=== PATIENT | female | born 1965 | race Caucasian/White ===

== ENCOUNTER 2022-02-10 05:59 | Observation (INO) ==
[2022-02-10] MEDS ORDERED: Lactated Ringers 1000 ml BAG 1,000 ML IV SCH (06:00)
[2022-02-10] MEDS ORDERED: Buffered Lidocaine 1% SYRIN 1 ml INTRADERM ONE (06:00)
[2022-02-10] MEDS ORDERED: ceFAZolin 2 GM in NS PREMIX 2 GM/100 ML BAG IVPB ONE (06:22)
[2022-02-10] MEDS ORDERED: Vancomycin 1,000 MG VIAL ONE (06:31)
[2022-02-10] MEDS ORDERED: Propofol 10 MG/ML 20 ML BTL ONE (06:52)
[2022-02-10] MEDS ORDERED: Lidocaine 2% PF 5 ML VIAL ONE (06:52)
[2022-02-10] MEDS ORDERED: Ketamine HCL 50 mg/ml 10 ml VIAL (500 MG) ONE (06:53)
[2022-02-10] MEDS ORDERED: fentaNYL 100 mcg/2 ml 50 MCG/ML VIAL ONE ×2 (07:16→09:00)
[2022-02-10] MEDS ORDERED: Midazolam 5 mg/5 ml VIAL 1 mg/ml 5 ml VIAL (5 mg) ONE (07:16)
[2022-02-10] MEDS ORDERED: ROPIVACAINE 5 MG/ML 30 ML BTL (0.5%) ONE (07:22)
[2022-02-10] MEDS ORDERED: Rocuronium 50 mg VIAL 10 mg/ml 5 ml VIAL (50 mg) ONE ×2 (07:36→07:56)
[2022-02-10] MEDS ORDERED: fentaNYL 250 mcg/5 ml 50 MCG/ML 5 ml VIAL (250 MCG) ONE (07:40)
[2022-02-10] MEDS ORDERED: Ondansetron 4 mg VIAL 2 MG/ML 2 ml VIAL ONE (07:56)
[2022-02-10] MEDS ORDERED: Dexamethasone IV 4 MG/ML VIAL 1 ml VIAL ONE (07:56)
[2022-02-10] MEDS ORDERED: Acetaminophen IV 1 GM/100ML 1,000 MG/100 ML BAG IV ONE (08:12)
[2022-02-10] MEDS ORDERED: Ondansetron 4 mg VIAL 2 MG/ML 2 ml VIAL IV PRN ×2 (08:15→10:43)
[2022-02-10] MEDS ORDERED: Naloxone 0.4 mg VIAL 0.4 mg/ml 1 ml VIAL IV PRN (08:15)
[2022-02-10] MEDS ORDERED: HYDROmorphone 0.5 MG/0.5 ML SYRINGE ONE (08:58)
[2022-02-10] MEDS ORDERED: Lactulose 30 ml UDC PO PRN (10:43)
[2022-02-10] MEDS ORDERED: Ondansetron ODT 4 mg TAB 4 MG TAB PO PRN (10:43)
[2022-02-10] MEDS ORDERED: Magnesium Hydroxide LIQ 30 ML UDC PO PRN (10:43)
[2022-02-10] MEDS ORDERED: Dextrose 50% Syringe 50 ml 25 GM/50 ML SYRINGE IV PUSH PRN (11:35)
[2022-02-10] MEDS ORDERED: HYDROmorphone 1 MG/1 ML SYRINGE ONE ×2 (12:27→12:30)
[2022-02-10] MEDS: HYDROmorphone 1 MG/1 ML SYRINGE IV PRN ×2 (12:28→13:09)
[2022-02-10] MEDS: Morphine 2 MG/ML SYRINGE IV PRN (13:50)
[2022-02-10] MEDS: Lactated Ringers 1000 ml BAG 1,000 ML IV SCH (13:58)
[2022-02-10] MEDS: HYDROcodone/ACETAMIN 5/325 mg TAB PO PRN ×2 (14:33→18:44)
[2022-02-10] MEDS: ceFAZolin 1 GM ADVAN 1 GM in NS 0.9% 50 ML 50 ML IVPB SCH (17:11)
[2022-02-10] MEDS: Magnesium Hydroxide LIQ 30 ML UDC PO SCH (21:21)
[2022-02-11] MEDS: HYDROcodone/ACETAMIN 5/325 mg TAB PO PRN ×4 (00:21→13:40)
[2022-02-11] MEDS: ceFAZolin 1 GM ADVAN 1 GM in NS 0.9% 50 ML 50 ML IVPB SCH ×2 (00:23→09:20)
[2022-02-11] MEDS: Lactated Ringers 1000 ml BAG 1,000 ML IV SCH (01:28)
[2022-02-11 06:00] LABS: Hematocrit 41 % (35-47); Hemoglobin 13.6 g/dL (12.0-16.0); Platelet Count 201 10^3/uL (150-450)
[2022-02-11 06:06] LABS: Calcium 8.8 mg/dL (8.6-10.3); Potassium 3.2 mmol/L (3.5-5.0)
[2022-02-11 06:12] LABS: eGFR CKD-EPI 109.8 (>60)
[2022-02-11] MEDS ORDERED: Potassium Chlor 20 meq TAB.ER PO ONE (08:08)
[2022-02-11] MEDS: METHYLNALTREXONE 150 MG PO SCH (08:20)
[2022-02-11] MEDS ORDERED: PHENTERMINE 15 MG PO SCH (09:00)
[2022-02-11] MEDS: Magnesium Hydroxide LIQ 30 ML UDC PO SCH ×2 (09:22→21:07)
[2022-02-11] MEDS: Vitamin THERAPEUTIC TAB PO SCH (09:24)
[2022-02-11] MEDS: Morphine 2 MG/ML SYRINGE IV PRN (14:28)
[2022-02-11 18:06] LABS: High Sensitivity Troponin 1 Hr 4 pg/mL (<15)
[2022-02-12 06:28] LABS: Hematocrit 33 % (35-47); Hemoglobin 11.6 g/dL (12.0-16.0); Mean Platelet Volume 8.2 fL (7.4-10.4); Platelet Count 236 10^3/uL (150-450)
[2022-02-12 07:18] LABS: Calcium 8.5 mg/dL (8.6-10.3); Magnesium 1.8 mg/dL (1.9-2.7); Potassium 3.5 mmol/L (3.5-5.0)
[2022-02-12 07:24] LABS: eGFR CKD-EPI 114.3 (>60)
[2022-02-12] MEDS: METHYLNALTREXONE 150 MG PO SCH (07:32)
[2022-02-12] MEDS ORDERED: Potassium Chlor 20 meq TAB.ER PO ONE (07:42)
[2022-02-12] MEDS ORDERED: Magnesium Sulfate IV 1GM/100ML 1 GM/100 ML BAG IV ONE (07:43)
[2022-02-12] MEDS: Vitamin THERAPEUTIC TAB PO SCH (08:38)
[2022-02-12] MEDS: Magnesium Hydroxide LIQ 30 ML UDC PO SCH (08:38)
[2022-02-12 11:24] VITALS: BP 138/85
== END 2022-02-12 13:55 | disposition home or self-care (01) ==
LOC: INTOOBSV 05:59 → AA 05:59 → SSU 10:43
PROVIDERS: ADMIT Orthopaedic Surgery; ATTEND Orthopaedic Surgery